=== PATIENT | female | born 1970 | race Caucasian/White ===

== ENCOUNTER 2020-01-21 14:57 | Emergency (ER) | payer SELFPAY ==
[~2020-01-21] VITALS: Ht 160 cm; Wt 81.6 kg
[2020-01-21 15:06] VITALS: BP 115/74
--- NOTE | 2020-01-21 15:15 | NUR ---
Pt placed in tent for covid precautions
--- NOTE | 2020-01-21 15:20 | NUR ---
49 y/o female from home c/o fever, cough, body aches x 3 days. states dry, nonproductive cough. rr even and unlabored, does not appear in any distress. 0/10 pain at this time. awake and alert. afebrile upon arrival. vss
--- NOTE | 2020-01-21 15:29 | NUR ---
covid 19 swab collected from pt
[2020-01-21 15:45] VITALS: BP 115/74
--- NOTE | 2020-01-21 15:45 | NUR ---
Patient discharged with v/s stable. Written and verbal after care instructions given and explained. Patient alert, oriented and verbalized understanding of instructions. Ambulatory with steady gait. All questions addressed prior to discharge. ID band removed. Patient advised to follow up with PMD. Rx of acetaminophen 500mg given. Patient educated on indication of medication including possible reaction and side effects. Opportunity to ask questions provided and answered.
== END 2020-01-21 15:45 | disposition home or self-care (01) ==
LOC: MED 14:57 → EEVIPCON 14:57 → MED 15:45
DX: B34.9 Viral infection, unspecified (principal); Z20.828 Contact with and (suspected) exposure to other viral communicable diseases; F32.9 Major depressive disorder, single episode, unspecified; E07.9 Disorder of thyroid, unspecified
CPT/HCPCS: 99283; U0003